=== PATIENT | male | born 1980 | race Caucasian/White ===

== ENCOUNTER 2018-10-10 19:21 | Observation (INO) | payer BC ==
[~2018-10-10] VITALS: Ht 177.8 cm; Wt 122.7 kg
--- NOTE | ~2018-10-10 | HEMODYNAMI ---
PATIENT:JASE LIZARRAGA MEDICAL RECORD: [id number] : 78 LOCATION:[facility] [address] [facility]# [id number] ADMISSION DATE: 10/10/18 Generatedon:10/11/20189:31 Patient name: JASE LIZARRAGA Patient #: [id number] SSN: [id number] : 1980 Date of study: 10/11/2018 Page: Of Hemodynamic Procedure Report Patient Data Patient Demographics Procedure consent was obtained First Name: JASE Gender: Male Last Name: ELHAM : 1980 Patient #: [id number] Age: 38 year(s) Race: SSN: [id number] Additional ID: [id number] Contact details Address: [address] [place] [address] State: [place] City: [place] Zip code: [address] Past Medical History Allergies: No known allergies Admission Admission Data Admission Date: 10/10/2018 Admission Time: 19:56 Admit Source: Emergency Insurance Payor: Private department health insurance Room #: D.[address] [facility] #: [id number] Height (in.): 70 BSA: 2.37 (m2) Height (cm.): 177.8 BMI: 38.88 (kg/m2) Weight (lbs.): 271 Weight (kg.): 122.92 Lab Results Lab Result Date: 10/11/2018 Lab Result Time: 0:00 Biochemistry Name Units Result Min Max BUN mg/dl 15 --(--*-)-- 7 18 Creatinine mg/dl 1.1 --(--*-)-- 0.6 1.3 eGFR ml/min 79.06050 *-(----)-- 90 120 NONAFRICAN CBC Name Units Result Min Max Hematocrit % 45.6 --(-*--)-- 42 54 Hemoglobin g/dl 15.5 --(-*--)-- 13.5 17.5 Procedure Procedure Types Cath Procedure Diagnostic Procedure LHC LHC w/Coronaries Sedation Charges Moderate Sedation up to 15 minutes PCI Procedure Coronary Stent Coronary Stent Initial Procedure Description Procedure Date Procedure Date: 10/11/2018 Procedure Start Time: 8:58 Procedure End Time: 9:26 Procedure Staff Name Function Javi Iniguez MD Performing Physician Toshia Vaz RT Monitor Natacha Luis RT Scrub Johan Teran RT Scrub Romel Gramajo RN Nurse Procedure Data Cath Procedure Fluoroscopy Diagnostic fluoroscopy Total fluoroscopy Time: 6.2 time: 6.2 min min Diagnostic fluoroscopy Total fluoroscopy dose: dose: 1540 mGy 1540 mGy Contrast Material Contrast Material Type Amount (ml) Isovue 300 131 Entry Location Entry Primary Successful Side Size Upsize Upsize Entry Closure Succes sful Closure Location (Fr) 1 (Fr) 2 (Fr) Remarks Device Remarks Femoral Right 5 Fr 6 Fr Exoseal artery Short Estimated blood loss: 10 ml Diagnostic catheters Device Type Used For End Catheter Placement MULTIPACK JL 4.0 5Fr Procedure catheter MULTIPACK 3DRC 5Fr Procedure catheter MULTIPACK Pigtail 5 Fr Procedure catheter Procedure Complications No complications Procedure Medications Medication Administration Route Dosage 0.9% NaCl I.V. 100 ml/hr Oxygen etCO2 Nasal cannula 2 l/min Heparin Flush Bag added to field 2 bags (1000units/500ml NS) Lidocaine 2% added to field 20 Versed I.V. 2 mg Fentanyl I.V. 100 mcg Versed I.V. 2 mg Nitroglycerin IC/IA I.C. 100 mcg Versed I.V. 1 mg Heparin Bolus I.V. 81073 units Plavix P.O. 600 mg Hemodynamics Rest BSA: 2.37 (m2) HGB: 15.5 (g/dl) O2 Consumption: Estimated: 313.15 (ml/min) O2 Co nsumption indexed: Estimated:132.13 (ml/min/m) Heart Rate: 96 (bpm) Pressure Samples Time Site Value (mmHg) Purpose Heart Use Rate(bpm) 9:07 LV 134/-8,12 Snapshot 95 9:08 AO 124/77(95) Pullback 94 9:08 LV 149/-5,30 Pullback 94 Gradients Valve Time Site 1 Site 2 Mean SEP/DFP Peak To Heart Use (mmHg) (sec/min) Peak Rate (mmHg) (bpm) Aortic 9:08 LV AO 22 9 25 94 149/-5,30 124/77(95) Calculations Valve P-P Mean Valve Index Valve Source Name Gradient Area Flow (cm2) Aortic 25 22 25 22 Snapshots Pre Cath Intra NCS Post Cath Vital Signs Time Heart Resp SPO2 etCO2 NIBP (mmHg) Rhythm Pain Sedation Rate (ipm) (%) (mmHg) Status Level (bpm) 8:45:42 92 27 98 0 146/88(113) NSR 0 (11) 10(A) , No pain 8:50:49 93 22 93 0 137/96(109) NSR 0 (11) 10(A) , No pain 8:54:59 85 17 92 36 133/86(106) NSR 0 (11) 10(A) , No pain 8:59:08 99 22 95 36 133/84(114) NSR 0 (11) 10(A) , No pain 9:03:16 93 34 92 37.5 119/81(100) NSR 0 (11) 10(A) , No pain 9:07:22 91 21 91 37.5 119/83(102) NSR 0 (11) 10(A) , No pain 9:11:26 103 17 92 40.6 119/86(104) NSR 0 (11) 9(A) , No pain 9:15:34 94 46 90 36.8 119/75(98) NSR 0 (11) 9(A) , No pain 9:19:37 94 36 90 36.8 129/80(98) NSR 0 (11) 9(A) , No pain 9:23:45 99 16 93 30 119/89(102) NSR 0 (11) 10(A) , No pain Medications Time Medication Route Dose Verified Delivered Reason Notes Effectiveness by by 8:53:24 0.9% NaCl I.V. 100 Romel Romel Per physician ml/hr Rox Gramajo RN RN 8:53:39 Oxygen etCO2 2 Romel Romel for low 02 sats Nasal l/min Rox Gramajo cannula RN RN 8:53:51 Heparin Flush added 2 bags Romel Romel used for Bag to Rox Gramajo procedure (1000units/500ml field STRONG RN NS) 8:54:13 Lidocaine 2% added 20ml Romel Romel for local to vial Rox Gramajo anesthetic field STRONG RN 8:55:50 Versed I.V. 2 mg Romel Romel for sedation Rox Gramajo RN RN 8:56:06 Fentanyl I.V. 100 Romel Romel for sedation mcg Rox Gramajo RN RN 9:01:07 Versed I.V. 2 mg Romel Romel for sedation Rox Gramajo RN RN 9:13:23 Nitroglycerin I.C. 100 Romel Javi for IC/IA mcg Rox shepard RN 9:13:34 Versed I.V. 1 mg Romel Romel for sedation Rox Gramajo RN RN 9:14:16 Heparin Bolus I.V. 12,000 Romel Romel for units Rox Gramajo anticoagulation RN RN 9:24:48 Plavix P.O. 600 mg Romel Romel for Rox Gramajo antiplatelet RN RN therapy Procedure Log Time Note 8:13:34 Informed consent obtained and on chart 8:14:32 Time tracking: Regular hours (M-F 7:00 - 5:00) 8:14:36 Plan of Care:Hemodynamics will remain stable., Cardiac rhythm will remain stable., Comfort level will be maintained., Respiratory function will remain adequate., Patient/ family verbilizes understanding of procedure., Procedure tolerated without complication., Recovers from procedure without complications.. 8:15:56 Admit Source: Emergency department 8:16:08 Insurance Payor : Private health insurance 8:17:36 Patient Weight : 271 lbs 8:17:51 Patient Height : 70 inches 8:19:51 Romel Gramajo RN sent for patient. Start room use. 8:37:58 Patient received from Med II to CCL 2 Alert and oriented. Tansferred to table in Supine position. 8:38:00 Warm blankets applied, and yessy hugger turned on for patient comfort. 8:38:00 Correct patient and procedure confirmed by team. 8:38:01 ECG and BP/O2 sat monitors applied to patient. 8:42:17 Full Disclosure recording started 8:42:28 H&P Date Dictated: 10/10/2018 Within 30 days and on chart.. 8:42:29 Pre-procedure instructions explained to patient. 8:42:29 Pre-op teaching completed and patient verbalized understanding. 8:42:31 Family in patients room. 8:42:33 Patient NPO since Midnight. 8:42:38 Patient allergic to No known allergies 8:42:41 Is the patient allergic to Iodine/contrast media? No. 8:42:42 Is patient on blood thinner?No 8:42:43 Patient diabetic? Yes. 8:42:46 If diabetic: On Metformin? No 8:42:49 Previous problem with sedation/anesthesia? No ? 8:42:49 Snore? Yes 8:42:50 Sleep apnea? Yes 8:42:51 Deviated septum? No 8:42:52 Opens mouth fully? Yes 8:42:53 Sticks out tongue? Yes 8:42:56 Airway obstruction? No \ 8:43:00 Dentures? Yes OUT 8:43:03 Pre procedure: right dorsailis pedis pulse 1+ Palpable, but thready & weak; easily obliterated 8:43:06 Patient pain scale 0/10 ?. 8:43:14 IV patent on arrival in right forearm with 0.9% NaCl at KVO. 8:44:12 Right groin area was prepped with chlora-prep and draped in sterile fashion 8:44:29 RIGHT GROIN PREPPED, DUE TO IV LOCATION ON ARRIVAL 8:44:31 Alarms reviewed by R. N. 8:44:32 Sharps counted by scrub and verified by R.N. 8:44:37 Vital chart was started 8:44:39 Baseline sample Acquired. 8:44:42 Rhythm: sinus rhythm 8:51:00 Use device set Femoral Dx 8:51:01 ACIST Syringe (07618) opened to sterile field. 8:51:02 Bag Decanter (2002S) opened to sterile field. 8:51:03 ACIST Hand Control (03183) opened to sterile field. 8:51:03 ACIST Manifold (00534) opened to sterile field. 8:51:05 Tegaderm 4 x 4 (1626W) opened to sterile field. 8:51:07 Medline Cath Pack ([id number]) opened to sterile field. 8:51:08 DIAGNOSTIC Multipack 5Fr catheter set (YE0936) opened to sterile field. 8:51:09 SHEATH 5FR [place] (HCZ862) opened to sterile field. 8:51:09 EMERALD Guide Wire (046-139) opened to sterile field. 8:53:24 0.9% NaCl 100 ml/hr I.V. was administered by Romel Gramajo RN; Per physician; 8:53:39 Oxygen 2 l/min etCO2 Nasal cannula was administered by Romel Gramajo RN; for low 02 sats; 8:53:51 Heparin Flush Bag (1000units/500ml NS) 2 bags added to field was administered by Romel Gramajo RN; used for procedure; 8:54:04 --------ALL STOP TIME OUT------ 8:54:05 Final Timeout: patient, procedure, and site verified with staff and physician. All members of the team are in agreement. 8:54:06 Right groin site verified by team. 8:54:10 Fire Safety Assessment: A--An alcohol-based skin anteseptic being used preoperatively., C--Open oxygen or nitrous oxide is being used., D--An ESU, laser, or fiber-optic light is being used. 8:54:13 Lidocaine 2% 20ml vial added to field was administered by Romel Gramajo RN; for local anesthetic; 8:54:13 Physical assessment completed. ASA score P 2 - A patient with mild systemic disease as per Javi Iniguez MD. 8:54:49 2) 60-89 Mildly reduced kidney function, and other findings (as for stage 1) point to kidney disease. 8:54:55 Maximum allowable contrast dose (3.7 X eGFR X 0.75)207 ml. 8:54:58 Sedation plan: IV Moderate Sedation Medication:Versed, Fentanyl 8:55:50 Versed 2 mg I.V. was administered by Romel Gramajo RN; for sedation; 8:56:06 Fentanyl 100 mcg I.V. was administered by Romel Gramajo RN; for sedation; 8:56:08 Lab Result : BUN 15 mg/dl 8:56:08 Lab Result : eGFR NONAFRICAN 79.86304 ml/min 8:56:08 Lab Result : Creatinine 1.1 mg/dl 8:56:08 Lab Result : Hemoglobin 15.5 g/dl 8:56:08 Lab Result : Hematocrit 45.6 % 8:58:25 Procedure started. 8:58:31 Local anesthetic to right femoral artery with Lidocaine 2% by Javi Iniguez MD.INITIAL ACCESS ONLY 9:00:50 A 5 Fr sheath was inserted into the Right Femoral artery 9:01:07 Versed 2 mg I.V. was administered by Romel Gramajo RN; for sedation; 9::46 A MULTIPACK JL 4.0 5Fr catheter was advanced over the wire and used for Procedure. 9:03:46 LCA angiography performed. 9:03:50 Catheter exchanged over wire. 9:04:24 A MULTIPACK 3DRC 5Fr catheter was advanced over the wire and used for Procedure. 9:05:33 RCA angiography performed. 9:05:37 Catheter exchanged over wire. 9:06:29 A MULTIPACK Pigtail 5 Fr catheter was advanced over the wire and used for Procedure. 9:07:13 LV gram done using GERMAN 9:07:15 Injector settings: Ml/sec: 10, Volume: 20, 9:07:35 LV hemodynamics recorded. 9:08:06 EF : 55 % 9:08:51 Catheter exchanged over wire. 9:08:51 Proceeding to intervention. 9:08:55 SHEATH 6FR [place] (XKV471) opened to sterile field. 9:08:55 INFLATOR Merit BasixCompak (TR3333) opened to sterile field. 9:08:56 TUBING High Pressure Extension Tubing (Iniguez) (WF5040C) opened to sterile field. 9:08:57 BMW 300cm Straight Sieper 2 wire ([id number]) opened to sterile field. 9:08:57 GUIDE 6FR JR 4.0 catheter (AH0DK79) opened to sterile field. 9:10:08 Sheath upsized to a 6 Fr Short. 9:11:29 6 Fr JR 4 guide catheter was inserted over the wire 9:13:23 Nitroglycerin IC/IA 100 mcg I.C. was administered by Javi Iniguez MD; for vasodilation; 9:13:34 Versed 1 mg I.V. was administered by Romel Gramajo RN; for sedation; 9:14:16 Heparin Bolus 12,000 units I.V. was administered by Romel Gramajo RN; for anticoagulation; 9:15:10 BMW 300 wire advanced. 9:16:02 Wire advanced across lesion. 9:20:19 Place stent Inflation Number: 1 A ALFREDITO OTW 2.5 x 12 stent ([id number]) was prepped and advanced across the Dist RCA . The stent was deployed at 12 BRISSA for 0:10 (min:sec) . 9:22:03 Stent catheter was removed intact over wire. 9:22:04 Wire removed. 9:22:05 Guide catheter removed. 9:23:19 EXOSEAL 6Fr (EX600) opened to sterile field. 9:23:40 Sheath removed intact; hemostasis achieved with Exoseal to the Right Femoral artery. 9:23:44 Procedure ended.(Physican Out) 9:24:17 Fluoroscopy time 06.20 minutes. 9:24:22 Flurop Dose total: 1540 9:24:22 Fluoroscopy dose: 1540 mGy 9:: Dose Area Product 80175 mGy/cm. 9:24:30 Contrast amount:Isovue 300 131ml. 9:24:48 Plavix 600 mg P.O. was administered by Romel Gramajo RN; for antiplatelet therapy; 9:25:10 Maximum allowable dose exceeded? No. 9:25:13 Sharps counted by scrub and verified by R.N. 9:25:16 Post-op/insertion site Right Femoral artery dressed using a 4 x 4 and Tegaderm. 9:25:19 Post-procedure physical assessment completed. ASA score P 2 - A patient with mild systemic disease as per Javi Iniguez MD. 9:25:22 Post procedure rhythm: sinus rhythm 9:25:30 Estimated blood loss: 10 ml 9:25:31 Post procedure instruction explained to patient.Patient verbalizes understanding. 9:25:32 Patient needs reinforcement of post procedure teaching. 9:25:57 Procedure type changed to Cath procedure, Diagnostic procedure, LHC, LHC w/Coronaries, Sedation Charges, Moderate Sedation up to 15 minutes, PCI procedure, Coronary Stent, Coronary Stent Initial 9:26:18 Procedure and supply charges have been captured, reviewed, submitted and are correct. 9:26:20 Procedure Complication : No complications 9:26:22 Vital chart was stopped 9:26:22 See physician's report for complete and final results. 9:26:23 Report given to PCU. 9:26:25 Patient transfered to PCU with Bed. 9:26:27 Procedure ended. 9:26:27 Full Disclosure recording stopped 9:26:33 End room use (Document Last) Intervention Summary Intervention Notes Time ActionType Lesion and Equipment Action# Pressure Duration Attributes Used 9:20:19 Place stent Dist RCA ALFREDITO OTW 2.5 1 12 00:10 x 12 stent ([id number]) Device Usage Item Name Manufacture Quantity Catalog Hospital Part Current Minim al Lot# / Number Charge Number Stock Stock Serial# Code ACIST Syringe Acist 1 96529 755159 041079 457678 20 (26704) Medical Systems Inc Bag Decanter Microtek 1 2001S 804195 17315 714407 5 (2001S) Medical Inc. ACIST Hand Acist 1 78440 841601 009828 227187 5 Control Medical (14209) Systems Inc ACIST Acist 1 57998 506493 288145 927158 5 Manifold Medical (82140) Systems Inc Tegaderm 4 x 3M 1 1626W 922983 251076 328869 5 4 (1626W) Medline Cath Medline 1 [id number] 195263 85878 943961 5 Pack ([id number]) DIAGNOSTIC Cardinal 1 CE6470 000373 67160 193042 30 Multipack 5Fr Health catheter set (ZF9546) SHEATH 5FR Terumo 1 LXD267 092708 834779 500009 5 [place] (FDH214) EMERALD Guide Cardinal 1 502-455 330114 150938 739317 5 Wire Health (502-455) MULTIPACK JL Cardinal 1 164966 5 4.0 5Fr Health catheter MULTIPACK Cardinal 1 369241 5 3DRC 5Fr Health catheter MULTIPACK Cardinal 1 852092 5 Pigtail 5 Fr Health catheter SHEATH 6FR Terumo 1 JLY898 269295 516532 890758 40 [place] (WWR829) INFLATOR Merit 1 QR5777 324950 382366 908164 15 Merit Medical BasixCompak (UA5001) TUBING High Merit 1 [id number] 002051 69494 784809 10 Pressure Medical Extension Tubing (Iniguez) (IU8089K) BMW 300cm Gomez 1 7132776 142001 078664 780951 5 Straight Vascular Sieper 2 wire (7591857) GUIDE 6FR JR Medtronic 1 QR5WX72 997169 18064 682048 1 4.0 catheter (NF6UT92) ALFREDITO OTW 2.5 Medtronic 1 [id number] 706190 89405 078257 5 [id number] x 12 stent ([id number]) EXOSEAL 6Fr Cardinal 1 EX600 334593 730858 806109 10 (EX600) Health Signature Audit [place] Stage Time Signature Unsigned Intra-Procedure 10/11/2018 Toshia Vaz 9:31:11 AM RT(R) Signatures Performing Physician : Signature : Javi Iniguez MD Date : Time : Monitor : Toshia Vaz Signature : RT Date : Time : Nurse : Romel Lorigan Signature : RN Date : Time : [place] [address] [place] [address]
[2018-10-10] MEDS ORDERED: FARXIGA10 MG PO (19:31)
[2018-10-10] MEDS ORDERED: MOBIC7.5 MG PO (19:31)
[2018-10-10] MEDS ORDERED: LIPITOR20 MG PO (19:31)
[2018-10-10] MEDS ORDERED: PREVACID15 MG PO (19:31)
[2018-10-10] MEDS ORDERED: PIOGLITAZONE15 MG PO (19:32)
[2018-10-10] MEDS ORDERED: GLIPIZIDE10 MG PO (19:32)
--- NOTE | 2018-10-10 21:00 | NUR ---
PT SITTING UP IN BED. RESPIRATIONS ARE EVEN AND UNLABORED. NO DISTRESS NOTED. FAMILY AT BEDSIDE. COLOR WNL FOR RACE. VSS WILL CONTINUE TO MONITOR.
[2018-10-10 21:01] VITALS: BP 118/78
--- NOTE | 2018-10-10 21:52 | NUR ---
updated family on troponin levels and pt status.
--- NOTE | 2018-10-10 22:27 | NUR ---
ADMINISTERED 2 UNITS REGULAR INSULIN SUBQ PER SLIDING SCALE. PT BS WAS 178. PROVIDED PT WITH SANDWICH, PT IS NPO AFTER MIDNIGHT.
[2018-10-11 00:10] VITALS: BP 121/83
[2018-10-11 00:11] VITALS: BP 121/83; Ht 177.8 cm; Wt 122.7 kg
[2018-10-11 04:00] VITALS: BP 120/84
--- NOTE | 2018-10-11 07:40 | NUR ---
ROUNDING DONE WITH DR FLORES IN ROOM AT THIS TIME. PATIENT IS BEING HELD NPO FOR HEART CATH LATER THIS MORNING. AT [place]. ON HEART MONITOR. LEFT FA SALINE LOCK SEEN. DENIES CHEST PAIN AT THIS TIME.
--- NOTE | 2018-10-11 08:34 | NUR ---
TO PATROL JUDGE VIA BED.
[2018-10-11 08:37] LABS: BASOPHILS 0.2 % (0-2); EOSINOPHILS 1.6 % (0-7); HEMATOCRIT 45.6 % (42.0-54.0); HEMOGLOBIN 15.5 g/dL (13.5-17.5); IMMATURE GRANULOCYTES 0.2 % (0-5); MCH 28.9 pg (26.0-34.0); MCV 85.1 fL (80.0-100.0); MEAN PLATELET VOLUME 10.5 fL (7.4-10.4); MONOCYTES 8.2 % (2-11); NEUTROPHILS 60.8 % (40-80); PLATELET COUNT 255 10x3/uL (130-400); RBC 5.36 10x6/uL (4.20-6.10); RDW 14.4 % (11.5-14.5); WBC 8.7 10x3/uL (4.8-10.8)
[2018-10-11 08:45] LABS: CALC OSMOLALITY 282 mosm/kg (275-300); CARBON DIOXIDE 26.1 mmol/L (21.0-32.0); CHLORIDE - SERUM 104 mmol/L (98-107); CREATININE - SERUM 1.1 mg/dL (0.6-1.3); GLUCOSE 167 mg/dL (74-106); POTASSIUM - SERUM 4.1 mmol/L (3.5-5.1); SODIUM 139 mmol/L (136-145); UREA NITROGEN 15 mg/dL (7-18); eGFR NON AFRICAN AMERICAN 79 mL/min (90-120)
[2018-10-11] MEDS ORDERED: PLAVIX75 MG PO (09:43)
[2018-10-11] MEDS ORDERED: BAYER CHEWABLE81 MG PO (09:44)
--- NOTE | 2018-10-11 09:53 | NUR ---
RECEIVED PT FROM RESEARCHER. PT IS ALERT, DENIES ANY C/O CHEST PAIN OR NAUSEA. DRESSING IS CDI TO RIGHT GROIN, AREA IS SOFT AND NONTENDER. PEDAL PULSES PALPABLE. HOB IS FLAT, CALL LIGHT IN REACH. BED LOCKED AND LOW, SIDE RAILS UP X2. NSR, RATE IS 86, BP IS 130/87. RESP WTIH EASE ON ROOM AIR.
--- NOTE | 2018-10-11 10:01 | NUR ---
DRESSING IS CDI RIGHT GROIN, PEDAL PULSES PALPABLE. HOB IS FLAT, VSS, FAMILY AT BEDSIDE, CALL LIGHT IN REACH. PO FLUIDS SERVED.
--- NOTE | 2018-10-11 10:27 | NUR ---
PT ALERT, DENIES ANY C/O. DRESSING IS CDI TO RIGHT GROIN, AREA IS SOFT AND NONTENDER. PEDAL PULSES PALPABLE. HOB IS FLAT, VSS.
--- NOTE | 2018-10-11 10:44 | NUR ---
PT ALERT, DENIES ANY C/O. NSR, RATE 84, BP IS 127/84, SAT IS 94%. DRESSING CDI, PEDAL PULSES PALPABLE. HOB FLAT, FAMILY AT BEDSIDE.
--- NOTE | 2018-10-11 11:12 | NUR ---
PT IS ALERT, DRESSING IS CDI, PEDAL PULSES PALPABLE. HOB IS FLAT, VSS. FAMILY AT BEDSIDE.
--- NOTE | 2018-10-11 12:53 | NUR ---
1200 PT ALERT, VSS, DRESSING CDI, PEDAL PULSES PALPABLE. 1245 HOB ELEVATED 45 DEGREES AND SANDWICH TRAY SERVED. PT IS ALERT AND DENIES ANY C/O.
--- NOTE | 2018-10-11 13:44 | NUR ---
1315 HOB FULLY ELEVATED, DRESSING IS CDI TO RIGHT GROIN, PEDAL PULSES PALPABLE. PT IS ALERT AND DENIES ANY C/O. PT NIHARIKA SANDWICH AND PO FLUIDS WITH NO C/O NAUSEA. 1335 DRESSING CDI, PEDAL PULSES PALPABLE. PT DENIES ANY C/O. IV DC'D WITH CATH INTACT AND PT IS DRESSING FOR DC TO HOME WITH ASSIST.
--- NOTE | 2018-10-11 14:07 | NUR ---
1400 DC INSTRUCTIONS REVIEWED WITH PT AND WHO VERBALIZE UNDERSTANDING. PLAVIX PRESCIPTION TO PT, PT VERBALIZES UNDERSTANDING TO START THIS MEDICATION TOMORROW. PT HAS AMBULATED TO THE BATHROOM AND VOIDED QS. DENIES ANY C/O. 1405 PT ESCORTED TO PRIVATE AUTO VIA WC BY NURSE WITH FAMILY MEMBER DRIVING HIM HOME. PT HAS ALL PERSONAL BELONGINGS AND DC INSTRUCTIONS AT TIME OF DISCHARGE.
== END 2018-10-11 14:05 | disposition home or self-care (01) ==
LOC: D.ER 19:21 → D.M2 19:56 → OBSVTIME 19:56 → D.M2 19:56 → D.CLR 10-11 09:44
PROVIDERS: ADMIT Internal Medicine Cardiovascular Disease; ATTEND Internal Medicine Cardiovascular Disease
DX: I21.4 Non-ST elevation (NSTEMI) myocardial infarction (principal); I10 Essential (primary) hypertension; E11.9 Type 2 diabetes mellitus without complications